=== PATIENT | male | born 1985 | race Caucasian/White ===

== ENCOUNTER 2020-07-02 14:36 | Emergency (ER) | payer SELFPAY ==
[~2020-07-02] VITALS: Ht 182.9 cm; Wt 115.8 kg
[2020-07-02 15:02] VITALS: BP 112/82
== END 2020-07-02 16:25 | disposition home or self-care (01) ==
LOC: ER 14:37
DX: F12.90 Cannabis use, unspecified, uncomplicated (principal); F15.90 Other stimulant use, unspecified, uncomplicated; F17.200 Nicotine dependence, unspecified, uncomplicated; Z86.19 Personal history of other infectious and parasitic diseases
CPT/HCPCS: 99281